=== PATIENT | female | born 1960 | race Caucasian/White ===

== ENCOUNTER 2021-02-15 15:51 | Outpatient (RCR) | payer BC ==
[~2021-02-15 15:51] MED LIST: LEVOTHYROXINE75 MCG PO; PRAVASTATIN SOD40 MG PO; PROZAC PO
== END 2021-02-28 ==
LOC: PT 15:51
PROVIDERS: ATTEND Internal Medicine
DX: H81.4 Vertigo of central origin (principal)

== ENCOUNTER → 2021-07-06 | Outpatient (CLI) | payer SELFPAY | LOC: MRI 07:36 | PROVIDERS: ATTEND Internal Medicine | DX: M23.311 Other meniscus derangements, anterior horn of medial meniscus, right knee (principal) ==